=== PATIENT | female | born 1965 | race Caucasian/White ===

== ENCOUNTER 2016-03-09 07:26 | Day surgery (SDC) | payer OTHER, MEDICARE ==
[~2016-03-09 07:26] MED LIST: LACTATED RINGERS 1,000 ML IV SCH
[2016-03-09 07:43] VITALS: TEMP 97.6
[2016-03-09] MEDS: LIDOCAINE 1% 20 ML VIAL (10MG/ML) FOR IV START INTRADERMA ONE ×2 (07:45→07:58)
[2016-03-09] MEDS ORDERED: ONDANSETRON 4 MG/2 ML VIAL IVP STA (08:03)
[2016-03-09] MEDS ORDERED: LIDOCAINE 1% INJ 10MG/ML (20 ML MDV) ONE (08:50)
[2016-03-09] MEDS ORDERED: PROPOFOL 10 MG/ML 20 ML VIAL IV ONE (08:50)
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
--- NOTE | 2016-03-09 09:23 | P.OP ---
Date of Procedure: 03/09/16 Preoperative Diagnosis: GERD Screening colonoscopy Postoperative Diagnosis: Antral gastritis Small sliding hiatal hernia Mild diverticulosis Mild external hemorrhoids Procedure(s) Performed: EGD Colonoscopy Anesthesia: MAC Surgeon: Mj Fu Pathology: other (Antrum, esophagus) Condition: stable Disposition: PACU Description of Procedure: The patient's placed on the endoscopy table in the lateral position. She received IV sedation. The gastroscope some placed oropharynx passed in the esophagus into the stomach. The scope was placed through the pylorus. The first and second portion of the duodenum appeared normal. Scope was then brought back the antrum this. Mildly inflamed. A biopsies was performed. Scope was retroflexed and remainder of the stomach appeared normal. There was a small sliding hiatal hernia. The GE junction was at 40 cm. The distal esophagus was minimal inflamed a biopsies performed. The proximal esophagus. Normal. Next digital rectal exam was performed which revealed external hemorrhoids. Flexible colonoscope was then placed patient anus passed throughout the entire colon. The ileocecal valve was visualized. Cecum, ascending and transverse colon appeared normal. In the descending; was mild diverticular changes. Scope was then brought back the rectum and this appeared normal. The scope was withdrawn for patient.
[2016-03-09 09:24] VITALS: PULSE 60
[2016-03-09 09:42] VITALS: BP 130/71; RESP 18
== END 2016-03-09 09:52 | disposition home or self-care (01) ==
LOC: ORWHC2ENDO 07:26
PROVIDERS: ATTEND Surgery
DX: Z12.11 Encounter for screening for malignant neoplasm of colon (principal); K21.0 Gastro-esophageal reflux disease with esophagitis; K64.4 Residual hemorrhoidal skin tags; K57.30 Diverticulosis of large intestine without perforation or abscess without bleeding; K31.9 Disease of stomach and duodenum, unspecified; K29.70 Gastritis, unspecified, without bleeding; K44.9 Diaphragmatic hernia without obstruction or gangrene; M79.7 Fibromyalgia; E07.9 Disorder of thyroid, unspecified; F32.9 Major depressive disorder, single episode, unspecified; Z79.1 Long term (current) use of non-steroidal anti-inflammatories (NSAID); Z79.899 Other long term (current) drug therapy
CPT/HCPCS: 88305; 88342; 43239; J2405; J2001; J2704; G0121; 99153

== ENCOUNTER → 2018-07-04 | Outpatient (CLI) | payer MEDICARE, BC ==
--- NOTE | 2018-07-04 22:25 | ECHOF ---
Referral Reason:R01.1 Cardiac Murmur MEASUREMENTS -------- HEIGHT: 172.7 cm WEIGHT: 81.2 kg BP: IVSd: 1.2 cm (0.6 - 1.1) LVIDd: 4.5 cm (3.9 - 5.3) LVPWd: 0.9 cm (0.6 - 1.1) IVSs: 1.2 cm LVIDs: 4.0 cm LVPWs: 0.9 cm LA Diam: 3.4 cm (2.7 - 3.8) LAESV Index (A-L): 27.25 ml/m Ao Diam: 2.8 cm (2.0 - 3.7) LA Diam: 3.8 cm (2.7 - 3.8) AV Cusp: 1.8 cm (1.5 - 2.6) EPSS: 1.0 cm MV E Sterling: 0.43 m/s MV DecT: 374 ms MV A Sterling: 0.57 m/s MV E/A Ratio: 0.75 RAP: 5.00 mmHg RVSP: 22.37 mmHg MV EF SLOPE: 50.53 mm/s (70 - 150) MV EXCURSION: 15.97 mm (> 18.000) FINDINGS -------- Sinus rhythm. This was a technically good study. The left ventricular size is normal. There is mild concentric left ventricular hypertrophy. Overa ll left ventricular systolic function is mildly impaired with, an EF between 45 - 50 %. The right ventricle is normal in size. The left atrial size is normal. Normal LA size by volume 22+/-6 ml/m2. The right atrial size is normal. There is mild aortic valve sclerosis. There is mild aortic regurgitation. Mild mitral annular calcification present. Mild mitral regurgitation is present. Mild tricuspid regurgitation present. There is no evidence of pulmonary hypertension. The right v entricular systolic pressure, as measured by Doppler, is 22.37mmHg. There is no pulmonic regurgitation present. The aortic root size is normal. There is no pericardial effusion. CONCLUSIONS -------- 1. The left ventricular size is normal. 2. There is mild concentric left ventricular hypertrophy. 3. Overall left ventricular systolic function is mildly impaired with, an EF between 45 - 50 %. 4. The right ventricle is normal in size. 5. The left atrial size is normal. 6. Normal LA size by volume 22+/-6 ml/m2. 7. The right atrial size is normal. 8. There is mild aortic valve sclerosis. 9. Mild mitral annular calcification present. 10. Mild mitral regurgitation is present. 11. Mild tricuspid regurgitation present. 12. There is no evidence of pulmonary hypertension. 13. The right ventricular systolic pressure, as measured by Doppler, is 22.37mmHg. 14. There is no pulmonic regurgitation present. 15. The aortic root size is normal. 16. There is no pericardial effusion. CAFETERIA COOK: Melissa Negron RDCS
== END | disposition home or self-care (01) ==
LOC: RADECHMAIN 14:01
PROVIDERS: ATTEND Family Medicine
DX: I08.1 Rheumatic disorders of both mitral and tricuspid valves (principal)
CPT/HCPCS: 93306

== ENCOUNTER → 2018-07-23 | Outpatient (CLI) | payer BC, MEDICARE ==
--- NOTE | 2018-07-23 16:59 | US ---
EXAMINATION TYPE: US kidneys/renal and bladder DATE OF EXAM: 07/23/2018 COMPARISON: US CLINICAL HISTORY: R94.4 Abnormal kidney function. EXAM MEASUREMENTS: Right Kidney: 10.0 x 5.2 x 3.8 cm Left Kidney: 10.3 x 4.9 x 4.6 cm Post Void Residual Volume: 1.1 mL Right Kidney: No hydronephrosis or masses seen Left Kidney: No hydronephrosis or masses seen Bladder: wnl Bilateral Jets seen: yes Normal Post Void Residual: yes There is no evidence for hydronephrosis at this point in time. No nephrolithiasis is seen. No dianne s are identified. The urinary bladder is anechoic. Bilateral ureteral jets are seen. There is no ascites. Cortical medullary differentiation is maintained. IMPRESSION:
== END | disposition home or self-care (01) ==
LOC: RADUSWWP 15:33
PROVIDERS: ATTEND Family Medicine
DX: R94.4 Abnormal results of kidney function studies (principal)
CPT/HCPCS: 76770

== ENCOUNTER → 2018-08-15 | Outpatient (CLI) | payer BC, MEDICARE ==
--- NOTE | 2018-08-19 09:24 | MM ---
Reason for exam: screening (asymptomatic). Last mammogram was performed 16 years ago. History: Patient is postmenopausal and had first child at age 31. Physical Findings: A clinical breast exam by your physician is recommended on an annual basis and results should be correlated with mammographic findings. MG 3D Screening Mammo W/Cad Bilateral CC and MLO view(s) were taken. No prior studies available for comparison. There are scattered fibroglandular densities. Three 5mm circumscribed nodules left breast. One tiny 5mm circumscribed nodule right breast only apparent on 3D. This is a benign pattern. 6 month follow up left breast recommended as no comparisons are available. ASSESSMENT: Probably benign, BI-RAD 3 RECOMMENDATION: Follow-up diagnostic mammogram of the left breast in 6 months.
== END | disposition home or self-care (01) ==
LOC: RADMAMWWP 14:54
PROVIDERS: ATTEND Family Medicine
DX: Z12.31 Encounter for screening mammogram for malignant neoplasm of breast (principal)
CPT/HCPCS: 77063; 77067

== ENCOUNTER → 2019-02-21 | Outpatient (CLI) | payer BC, MEDICARE ==
--- NOTE | 2019-02-21 11:44 | CT ---
EXAMINATION TYPE: CT angio chest DATE OF EXAM: 02/21/2019 COMPARISON: None HISTORY: Shortness of breath and weakness CT DLP: 391 mGycm CONTRAST: CT chest with contrast and 3D reconstruction with MIP imaging is performed with IV Contrast, patient injected with 100 mL of Isovue 370. Contrast-enhanced CT of the chest was performed through the course of the pulmonary arteries with juaquin g and mediastinal window settings submitted. 3D reconstruction with MIP imaging was also performed. PULMONARY ARTERIES: The pulmonary arteries and their major tributaries are patent. I do not see domonique dence for sizable filling defect to suggest pulmonary embolic process. LUNGS: The lungs are clear and free of infiltrate. No evidence for atelectasis. No pulmonary nodule or mass is detected. No pleural effusion. Hiatal hernia noted. MEDIASTINUM: Thoracic aorta is of normal caliber,however, evaluation is limited given timing of the contrast bolus. If there is concern for thoracic aortic pathology consider IRLANDA. Correlate clinicall y . The heart is not enlarged. No evidence for mediastinal mass. No mediastinal lymph nodes greater than 1cm. HILAR STRUCTURES: No evidence for mass. No hilar lymph nodes greater than 1 cm. UPPER ABDOMEN: No significant abnormality is seen. IMPRESSION: 1. No evidence for Pulmonary embolism at this time.
== END | disposition home or self-care (01) ==
LOC: RADCTMAIN 10:56
PROVIDERS: ATTEND Internal Medicine Critical Care Medicine
DX: R06.02 Shortness of breath (principal)
CPT/HCPCS: 71275; Q9967

== ENCOUNTER → 2019-11-06 | Outpatient (CLI) | payer BC, MEDICARE ==
--- NOTE | 2019-11-11 11:13 | MM ---
Reason for exam: screening (asymptomatic). Last mammogram was performed 1 year and 3 months ago. History: Patient is postmenopausal and had first child at age 31. Physical Findings: A clinical breast exam by your physician is recommended on an annual basis and results should be correlated with mammographic findings. MG 3D Screening Mammo W/Cad Bilateral CC and MLO view(s) were taken. Prior study comparison: August 15, 2018, bilateral MG 3d screening mammo w/cad. There are scattered fibroglandular densities. There is chronic nodularity in the right breast. Suspected intramammary lymph node is slightly larger left upper outer quadrant at 7mm. 6 month follow up to reassess. ASSESSMENT: Probably benign, BI-RAD 3 RECOMMENDATION: Follow-up diagnostic mammogram of the left breast in 6 months. (3D)
== END | disposition home or self-care (01) ==
LOC: RADMAMWWP 09:15
PROVIDERS: ATTEND Family Medicine
DX: Z12.31 Encounter for screening mammogram for malignant neoplasm of breast (principal)
CPT/HCPCS: 77063; 77067

== ENCOUNTER → 2020-05-04 | Outpatient (CLI) | payer BC, MEDICARE ==
--- NOTE | 2020-05-04 09:50 | MM ---
Reason for exam: follow-up at short interval from prior study. Last mammogram was performed 6 months ago. History: Patient is postmenopausal and had first child at age 31. Physical Findings: Nurse did not find any significant physical abnormalities on exam. MG 3D Diag Mammo W/Cad LT CC and MLO view(s) were taken of the left breast. Prior study comparison: November 06, 2019, bilateral MG 3d screening mammo w/cad. August 15, 2018, bilateral MG 3d screening mammo w/cad. The breast tissue is heterogeneously dense. This may lower the sensitivity of mammography. Finding: There is a typically benign 4 mm circumscribed round mass located 8 cm from the nipple in the upper outer quadrant, middle position of the left breast consistent with prior exam, better seen today. No significant changes in finding since November 06, 2019 and August 15, 2018. These results were verbally communicated with the patient and result sheet given to the patient on 05/04/20. ASSESSMENT: Benign, BI-RAD 2 RECOMMENDATION: Return to routine screening mammogram schedule for both breasts. Back on schedule.
== END ==
LOC: RADMAMWWP 08:16
PROVIDERS: ATTEND Family Medicine
DX: N63.21 Unspecified lump in the left breast, upper outer quadrant (principal); Z78.0 Asymptomatic menopausal state
CPT/HCPCS: 77061; 77065

== ENCOUNTER → 2020-09-22 | Outpatient (CLI) | payer BC, MEDICARE ==
--- NOTE | 2020-09-22 14:54 | MR ---
EXAMINATION TYPE: MR iac wo/w con DATE OF EXAM: 09/22/2020 COMPARISON: HISTORY: Acoustic nerve disorder, vertigo, ringing in ear, left hearing loss TECHNIQUE: Multiplanar, multisequence images of the brain and brainstem is performed small akesn-su-minb and hig h resolution images through the internal auditory canals without and with IV contrast, utilizing 8.5 mL intravenous Gadavist . FINDINGS: Diffusion weighted images demonstrate no evidence of a recent infarct or other diffusion ab normality. There is no extra-axial fluid collection or significant white matter signal abnormality. The ventricular system and cisternal spaces are normal in size and appearance. The brain volume is age appropriate. Cerebellopontine angles show no mass. There is no abnormal enhancement along the internal auditory ca nals. Midline structures demonstrate normal morphology. The craniocervical junction appears within normal limits. Post contrast images demonstrates wispy enhancement right cerebellar hemisphere, there is sm all local area of volume loss, chronic. The dural venous sinuses appear patent. The visualized sinuse s are clear and the globes are intact. Right mastoid air cells show inflammatory change. 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 Correlate to exclude mastoiditis on the right.
== END | disposition home or self-care (01) ==
LOC: RADMRIMAIN 08:44
PROVIDERS: ATTEND Otolaryngology
DX: H91.92 Unspecified hearing loss, left ear (principal); H93.3X9 Disorders of unspecified acoustic nerve
CPT/HCPCS: 70553; A9585

== ENCOUNTER → 2021-08-19 | Outpatient (CLI) | payer BC, MEDICARE ==
--- NOTE | 2021-08-23 14:28 | MM ---
Reason for Exam: Clinical finding. Last mammogram was performed 1 year(s) and 9 month(s) ago. Patient History: Menarche at age 12. First Full-Term at age 31. Late child-bearing (after 30). Postmenopausal. Risk Values: Rosa 5 year model risk: 1.8%. NCI Lifetime model risk: 10.7%. Prior Study Comparison: 08/15/2018 Bilateral Screening Mammogram, [facility]. 11/06/2019 Bilateral Screening Mammogram, [facility]. 05/04/2020 Left Diagnostic Mammogram, [facility]. Tissue Density: There are scattered fibroglandular densities. Findings: Analyzed By CAD. No distinct abnormality seen within the left axilla. No evidence for mass or suspicious cluster of microcalcifications. Technique: Method: Targeted. Findings: The axilla of the left breast was scanned. No solid or cystic masses seen. No abnormal lymph nodes identified within the left axilla. Overall Assessment: Negative, BI-RAD 1 Assessment: MG 3D diag mammo w/cad [facility] - Bilateral: Incomplete: need additional imaging evaluation, BI-RAD 0 - Left. US breast axilla LT - Left: Negative, BI-RAD 1. Management: Screening Mammogram of both breasts in 1 year. Electronically signed and approved by: Kartik Chao M.D. Radiologis
== END | disposition home or self-care (01) ==
LOC: RADMAMWWP 12:54
PROVIDERS: ATTEND Family Medicine
DX: R92.8 Other abnormal and inconclusive findings on diagnostic imaging of breast (principal); Z78.0 Asymptomatic menopausal state
CPT/HCPCS: 77062; 77066

== ENCOUNTER → 2022-11-08 | Outpatient (CLI) | payer BC, MEDICARE ==
--- NOTE | 2022-11-09 09:07 | BD ---
EXAMINATION TYPE: Axial Bone Density DATE OF EXAM: 11/08/2022 CLINICAL HISTORY: 57 years old Female. ICD-10 CODE: Z12.31 screen mammo Z78.0 Menopause Height: 5 ft 8 in Weight: 191 FRAX RISK QUESTIONS: Alcohol (3 or more units per day): no Family History (Parent hip fracture): no Glucocorticoids (More than 3mos): no (Ex: prednisone, prednisolone, methylprednisolone, dexamethasone, and hydrocortisone). History of Fracture in Adulthood: yes Secondary Osteoporosis: 1. Type 1 Diabetes: no 2. Hyperthyroidism: no 3. Menopause before 45: no 4. Malnutrition: irritable bowel 5. Chronic liver disease: no Rheumatoid Arthritis: no Current Tobacco Use: no RISK FACTORS HISTORY OF: Surgery to Spine/Hip(right/left)/Wrist (right/left): no Family History of Osteoporosis: no Active: no Diet low in dairy products/other sources of calcium: no Postmenopausal woman: yes Take estrogen and/or progesterone medications: no Lost more than 2 inches in height since high school: no Frequent falls: no Poor Health: good Hyperparathyroidism: no Adrenal Insufficiency: no MEDICATIONS: Thyroid Medications: yes Which medication: levothyroxine How Long: approx 12 years Additional Medications: levothyroxine, carvedilol, trokendi, prevacid, cozaar, Wellbutrin, Lipitor, t rokenki, celexa, vit d , zanaflex,diclofenac, sodium , lodocaine Additional History: EXAM MEASUREMENTS: Bone mineral densitometry was performed using the [employer] System. Bone mineral density as measured about the Lumbar spine is: ----- L1-L4(G/cm2): 1.327 T Score Values are as follows: ----- L1: 0.9 ----- L2: -0.2 ----- L3: 1.6 ----- L4: 1.9 ----- L1-L4: 1.2 Z Score Values are as follows: ----- L1: 1.2 ----- L2: 0.2 ----- L3: 1.9 ----- L4: 2.2 ----- L1-L4: 1.5 baseline Bone mineral density about the R hip (g/cm2): 1.028 Bone mineral density about the L hip (g/cm2): 0.958 T Score values are as follows: -----R Neck: -0.1 -----L Neck: -0.6 -----R Total: 0.7 -----L Total: 0.7 Z Score values are as follows: -----R Neck: 0.6 -----L Neck: 0.1 -----R Total: 1.0 -----L Total: 1.0 baseline FRAX%s: The graph provided illustrates a 10.6 % chance for a major osteoporotic fx and a 0.4 % chance for the hips probability for fx in 10 years time. IMPRESSION: Normal (Values between +1 and -1 indicate normal bone mass). Consider repeating this study in 5 year s or sooner if there is some new clinical indication. NOTE: T-SCORE=SD OF THE YOUNG ADULT MEAN.
--- NOTE | 2022-11-09 20:38 | MM ---
Reason for Exam: Screening (asymptomatic). Last mammogram was performed 1 year(s) and 3 month(s) ago. Patient History: Menarche at age 12. First Full-Term at age 31. Late child-bearing (after 30). Postmenopausal. Risk Values: Rosa 5 year model risk: 1.8%. NCI Lifetime model risk: 10.5%. Prior Study Comparison: 11/06/2019 Bilateral Screening Mammogram, [facility]. 05/04/2020 Left Diagnostic Mammogram, [facility]. 08/19/2021 Bilateral MG 3D diag mammo w/cad [facility], [facility]. Tissue Density: There are scattered fibroglandular densities. Findings: Analyzed By CAD. Pattern is stable. Focal asymmetry is in the upper outer aspect left breast. No suspicious groups of microcalcifications, spiculated or lobular masses, architectural distortion or other secondary signs of malignancy are mammographically apparent. Overall Assessment: Benign, BI-RAD 2 Management: Screening Mammogram of both breasts in 1 year. A negative mammogram report should not preclude additional follow up of suspicious palpable abnormalities. Patient should continue monthly self breast exam. A clinical breast exam by your physician is recommended on an annual basis and results should be correlated with mammographic findings. Electronically signed and approved by: Fox Gunderson D.O. Radiologis
== END | disposition home or self-care (01) ==
LOC: RADMAMWWP 15:52
PROVIDERS: ATTEND Family Medicine
DX: Z12.31 Encounter for screening mammogram for malignant neoplasm of breast (principal); Z78.0 Asymptomatic menopausal state
CPT/HCPCS: 77063; 77067; 77080

== ENCOUNTER 2023-09-25 06:11 | Day surgery (SDC) | payer BC, MEDICARE ==
[2023-09-19 13:56] VITALS: BMI 30.1
[~2023-09-25 06:11] MED LIST changes: -LACTATED RINGERS 1,000 ML IV SCH; +LIDOCAINE 1% (10MG/ML) FOR IV START INTRADERMA PRN
[2023-09-25] MEDS: IV FLUID CONTINUATION 1,000 ML IV ONE (06:28)
[2023-09-25 06:46] VITALS: TEMP 98.3
[2023-09-25] MEDS: LACTATED RINGERS 1,000 ML IV SCH (06:48)
[2023-09-25] MEDS ORDERED: PROPOFOL 10 MG/ML 20 ML VIAL IV ONE (07:00)
--- NOTE | 2023-09-25 07:15 | P.PCN ---
Date of Procedure: 09/25/23 Procedure(s) Performed: BRIEF HISTORY: Patient is a 58-year-old, pleasant, white female scheduled for an upper endoscopy as a part of evaluation of severe hot bone and lung send history of GERD. Symptoms have been progressively getting worse. She has been on Protonix 40 mg daily and Pepcid at bedtime and still complains symptomatic with worsening heartburn almost on a daily basis.. PROCEDURE PERFORMED: Esophagogastroduodenoscopy biopsy. PREOPERATIVE DIAGNOSIS: Refractory heartburn. IV sedation per anesthesia. PROCEDURE: After informed consent was obtained, the patient was brought into the endoscopy unit. IV sedation was administered by Anesthesia under continuous monitoring. Initially the Olympus GIF-140 video endoscope was inserted into the mouth. Esophagus intubated without any difficulty. It was gradually advanced into the stomach and duodenum and carefully examined. The bulb and the second part of the duodenum appeared normal. The scope at this time was withdrawn to the stomach, adequately insufflated with air, and upon careful examination, mucosa of the antrum, and right gastritis and biopsies were done from this area. Mucosa of the body, cardia and the fundus appeared normal. The scope was then withdrawn into the esophagus. The GE junction was located at 39 cm from the i ncisors. Hiatal hernia noted. There was mild erythema and superficial erosions in the distal esophagus consistent with LA grade B reflux esophagitis. The notice of esophagus appeared normal and the patient tolerated the procedure well. IMPRESSION: 1. Erythema and superficial erosions in the distal esophagus consistent with LA grade B reflux esophagitis. 2. Small hiatal hernia 3. Mild antral gastritis. RECOMMENDATIONS: The findings of this examination were discussed with the patient as well as her family. She was advised to follow-up with the biopsy results. In the meantime suggested that she increase her Protonix to 40 mg twice daily and follow antireflux measures. Follow-up in the office in 3 to 4 weeks.
[2023-09-25 07:49] VITALS: BP 105/70; PULSE 50; RESP 18
== END 2023-09-25 08:17 | disposition home or self-care (01) ==
LOC: ORWHC2ENDO 06:11
PROVIDERS: ATTEND Internal Medicine Gastroenterology
DX: K21.00 Gastro-esophageal reflux disease with esophagitis, without bleeding (principal); K22.10 Ulcer of esophagus without bleeding; K29.50 Unspecified chronic gastritis without bleeding; K44.9 Diaphragmatic hernia without obstruction or gangrene; K58.9 Irritable bowel syndrome, unspecified; Z80.0 Family history of malignant neoplasm of digestive organs; I10 Essential (primary) hypertension; I44.7 Left bundle-branch block, unspecified; E07.9 Disorder of thyroid, unspecified; M79.7 Fibromyalgia; G43.909 Migraine, unspecified, not intractable, without status migrainosus; Z79.899 Other long term (current) drug therapy; Z79.890 Hormone replacement therapy
CPT/HCPCS: 88305; 43239; J2704

== ENCOUNTER → 2024-01-22 | Outpatient (CLI) | payer BC, MEDICARE ==
--- NOTE | 2024-01-25 09:46 | MM ---
Reason for Exam: Screening (asymptomatic). Last mammogram was performed 1 year(s) and 2 month(s) ago. Patient History: Menarche at age 12. First Full-Term at age 31. Late child-bearing (after 30). Postmenopausal. Patient has history of breast feeding. Patient used Hormonal Contraceptives for 2 years. Risk Values: Rosa 5 year model risk: 1.9%. NCI Lifetime model risk: 10.2%. Prior Study Comparison: 05/04/2020 Left Diagnostic Mammogram, [facility]. 08/19/2021 Bilateral MG 3D diag mammo w/cad [facility], [facility]. 11/08/2022 Bilateral MG 3D screening mammo w/cad, [facility]. Tissue Density: There are scattered areas of fibroglandular density. Findings: Analyzed By CAD. Right breast: There is no suspicious group of microcalcifications or new suspicious mass. Left breast: There is no suspicious group of microcalcifications or new suspicious mass. Overall Assessment: Negative, BI-RAD 1 Management: Screening Mammogram of both breasts in [address] [facility] will attempt to contact patient to return for supplemental views and ultrasound if indicated. Patient should continue monthly self-breast exams. A clinical breast exam by your physician is recommended on an annual basis. This exam should not preclude additional follow-up of suspicious palpable abnormalities. Note on Rosa scores and lifetime risk: 1. A Rosa score greater than 3% is considered moderate risk. If this is the case, consider specialist referral to assess eligibility for a risk reducing agent. 2. If overall lifetime risk for the development of breast cancer is 20% or higher, the patient may qualify for future screening with alternating mammogram and breast MRI. [facility], , 01/25/2024 9:43 AM. Electronically signed and approved by: Hi Ashby DO
== END | disposition home or self-care (01) ==
LOC: RADMAMWWP 13:53
PROVIDERS: ATTEND Family Medicine
DX: Z12.31 Encounter for screening mammogram for malignant neoplasm of breast (principal); Z78.0 Asymptomatic menopausal state; R92.323 Mammographic fibroglandular density, bilateral breasts
CPT/HCPCS: 77063; 77067